=== PATIENT | female | born 1970 | race Caucasian/White ===

== ENCOUNTER 2017-09-16 11:21 | Emergency (ER) | payer BC ==
[2017-09-16 11:31] VITALS: RESP 18
[2017-09-16 13:37] LABS: % IMMATURE GRANULYOCYTES 0.6 % (0.0-1.1); ABSOLUTE IMMATURE GRANULOCYTES 0.06 10^3/uL (0.00-0.10); ADD DIFF? NO; ADD MORPH? NO; ADD SCAN? NO; ATYPICAL LYMPHOCYTE FLAG 0 (0-99); FRAGMENT RBC FLAG 0 (0-99); HEMATOCRIT 41.6 % (38.0-47.0); HEMOGLOBIN 14.4 g/dL (12.6-16.3); LEFT SHIFT FLG 0 (0-99); LIPEMIA HEMOLYSIS FLAG 90 (0-99); MEAN CELL HEMOGLOBIN 29.7 pg (27.9-34.1); MEAN CELL HEMOGLOBIN CONCENTR. 34.6 g/dL (32.4-36.7); MEAN CELL VOLUME 85.8 fL (81.5-99.8); MEAN PLATELET VOLUME 10.5 fL (8.7-11.7); PLATELET CLUMPS FLAG 0 (0-99); PLATELET COUNT 320 10^3/uL (150-400); RED BLOOD CELL COUNT 4.85 10^6/uL (4.18-5.33); RED CELL DISTRIBUTION WIDTH 12.9 % (11.5-15.2)
[2017-09-16 13:55] LABS: ANION GAP 12 mEq/L (8-16); CALCIUM 9.2 mg/dL (8.5-10.4); CARBON DIOXIDE 24 mEq/l (22-31); CHLORIDE 101 mEq/L (97-110); CREATININE 0.7 mg/dL (0.6-1.0); GLOMERULAR FILTRATION RATE > 60; GLUCOSE 104 mg/dL (70-100); POTASSIUM 4.2 mEq/L (3.5-5.2); SODIUM 137 mEq/L (134-144)
--- NOTE | 2017-09-16 14:32 | EDPHY ---
H & P Smoking Status: Never smoked Time Seen by Provider: 09/16/17 12:39 HPI/ROS: CHIEF COMPLAINT: Arm weakness, tingling, history of MS HISTORY OF PRESENT ILLNESS: 47-year-old female presents to the emergency department by private vehicle feeling paresthesias in her upper extremities as well as feelings of weakness and immobility of her upper extremities. Patient states in June of 2017 she had MRI of her head and spine. She was told that she had multiple sclerosis. She states that she has had ongoing neuropathy especially in her lower extremities intermittently for years. She states that her upper extremity neuropathy is associated with numbness and tingling and she has had a few episodes where her upper extremities become extremely stiff and she develops a contracture and is unable to move them. This last typically several minutes to sometimes an hour and then it tends to relax and resolve. She denies a headache. She does not feel dizzy. No visual changes. No chest pain or difficulty breathing. No abdominal pain. She has seen a neurologist for this. She had Solu-Medrol 1 g infusion x3 last week. She feels that that has helped her chronic back pain although she is still continued to have these episodes contracture and tingling in her upper extremities. She is scheduled to have an outpatient MRI of her brain and cervical spine. She denies chest pain or difficulty breathing. Denies abdominal pain. She states her energy level is normal. REVIEW OF SYSTEMS: Constitutional: No fever, no chills. Eyes: No double or blurry vision. ENT: No sore throat. Respiratory: No cough, no shortness of breath. Cardiac: No chest pain. Gastrointestinal: No abdominal pain, vomiting or diarrhea. Genitourinary: No dysuria. Musculoskeletal: Chronic back pain as above. No neck pain. Skin: No rashes. Neurological: No headache. (Chloe Hope) Past Medical/Surgical History: Multiple sclerosis (Chloe Hope) Social History: and lives in [place] (Chloe Hope) Physical Exam: General Appearance: Alert, no distress. Eyes: Pupils equal and round. Extraocular motions are all intact. ENT: Mouth: Mucous membranes moist. Respiratory: No wheezing, rhonchi, or rales, lungs are clear to auscultation. Cardiovascular: Regular rate and rhythm. Gastrointestinal: Abdomen is soft and nontender, no masses, no rebound or guarding, bowel sounds normal. Neurological: Alert and oriented x 3, cranial nerves II through XII grossly intact Skin: Warm and dry, no rashes. Musculoskeletal: Nontender to palpate along the cervical, thoracic or lumbar spine. Neck is supple. Extremities: Full range of motion and no peripheral edema. Psychiatric: Patient is oriented X 3, there is no agitation. (Chloe Hope) Constitutional: Initial Vital Signs Temperature (C) 36.9 C 09/16/17 11:26 Heart Rate 94 09/16/17 11:26 Respiratory Rate 18 09/16/17 11:26 Blood Pressure 132/85 H 09/16/17 11:26 O2 Sat (%) 97 09/16/17 11:26 O2 Delivery Mode Room Air Allergies/Adverse Reactions: codeine Allergy (Verified 09/16/17 11:26) Home Medications: Medication Instructions Recorded NK [No Known Home Meds] 09/16/17 Medical Decision Making ED Course/Re-evaluation: 47-year-old female with a history of multiple sclerosis presents with paresthesias to her upper extremity, feelings of weakness as well as contracted arms. The patient had an MRI of her brain and cervical spine 3 months ago. I recommended MRI without with contrast after talking with the radiologist, Dr. Matheus Luis, a both the brain and cervical spine. The patient verbalized understanding and agreed. The patient waited for over 2 hours in the emergency department. Patient requested to be discharged. She states her symptoms have completely resolved and she has a scheduled MRI as an outpatient for tomorrow. I encouraged her to keep scheduled appointment. She was advised the recommendations by the radiologist for ruling out new enhancing lesions that would require MRI of the cervical spine and brain both without and with contrast. Patient verbalized understanding and agreed. I explained to the patient that she should return to the emergency department immediately for change in symptoms or if she develops recurring symptoms. Her laboratory studies including CBC and chemistries were normal. (Chloe Hope) The patient was evaluated and managed by the Physician Cloth Doubling Machine Operator/ Nurse Practitioner. I discussed the patient's presentation and course with the midlevel provider with them and agree with the evaluation. My co-signature indicates that I have reviewed this chart and I agree with the findings and plan of care as documented. I am the secondary supervising physician. (Inocencia Cohen) Differential Diagnosis: Including but not limited to MS exacerbation, cervical radiculopathy, cord compression, electrolyte abnormality, seizures (Chloe Hope) - Data Points Laboratory Results: Laboratory Results 09/16/17 13:27 09/16/17 13:27 Departure - Departure Disposition: Home, Routine, Self-Care Clinical Impression: Multiple sclerosis, Paresthesia Condition: Good Instructions: Paresthesia (ED), Autoimmune Disease (ED) Additional Instructions: Talk with your neurologist about your scheduled imaging studies. Radiologist suggests that you would need an MRI of your brain and her cervical spine both without and with contrast. Please talk to your neurologist about this. Return to the emergency department if he developed recurring paresthesias in her upper or lower extremity, feelings of weakness in her upper or lower extremities, headache, new neurologic symptoms, or if you feel worse in any way. Referrals: Rhea Hoover MD [Primary Care Provider] - As per Instructions
[2017-09-16 15:42] VITALS: BP 137/83; PULSE 89; TEMP 98.2; O2SAT 96
== END 2017-09-16 15:41 | disposition home or self-care (01) ==
DX: G35 Multiple sclerosis (principal)

== ENCOUNTER → 2018-05-23 | Outpatient (CLI) | payer BC, OTHER | LOC: BMCIMAGING 16:50 | PROVIDERS: ATTEND Family Medicine | DX: Z03.89 Encounter for observation for other suspected diseases and conditions ruled out (principal) ==

== ENCOUNTER → 2018-05-29 | Outpatient (CLI) | payer BC, OTHER | LOC: BMCIMAGING 17:57 | PROVIDERS: ATTEND Family Medicine | DX: M25.532 Pain in left wrist (principal) ==

== ENCOUNTER 2018-05-31 08:44 | Inpatient (IN) | payer BC, OTHER ==
--- NOTE | 2018-05-31 09:16 | EDPHY ---
General Time Seen by Provider: 05/31/18 09:03 Narrative: CHIEF COMPLAINT: Hand injury, "I think it is infected" HISTORY OF PRESENT ILLNESS: Patient presents with complaints of injury to the left hand that she thinks is now infected. Last Friday she reports accidentally striking her left hand with the cover of a window well. She sustained lacerations to the palm side of the middle, ring and pinky fingers. She went to urgent care with a x-rayed her hand only, irrigated and repaired the lacerations. She said she was doing well until . Since then she has developed increasing pain, swelling and redness. There is also some purulence from the left pinky finger laceration that she knows on Friday. She went back to the urgent care with a evaluated her clinically and x-rayed the wrist. She was told everything was normal in the x-rays. She called them again later that day and was started on Keflex Friday night. She has increasing pain since then. She has concern for infection. No fever. No nausea vomiting. She is unable to straighten the fingers of the left hand. She has too much pain to move the hand or wrist. No other associated complaints or modifying factors. Right-hand dominant TIME OF INJURY: May 23, 2018 TETANUS STATUS: Questionable MEDICAL/SURGICAL/SOCIAL HISTORY: MS with monthly Tysabri infusions REVIEW OF SYSTEMS: Ten systems reviewed and are negative unless otherwise noted in the HPI EXAMINATION General Appearance: Alert, no distress Head: normocephalic, atraumatic Cardiovascular: Symmetric radial pulses with brisk cap refill the fingers left hand. Neurological: A&O, 2 point sensory symmetric, unable to test veterinary pharmacologist strength in the left hand due to pain laceration. There is no wrist drop. Skin: Warm and dry. There is erythema at the base of the left pinky finger, mildly on the palm over the flexor tendon past, and over the wrist over the flexor tendon path. No crepitus, gangrene or purulence from the wrist, but there is mild purulence from the laceration on the left index finger Extremities: Left hand carried out a flexion resting position. Unable to fully extend the fingers of the left hand. Unable to fully flex the fingers of the left hand. There is painful passive and active range of motion of the fingers and left wrist as well. Evidence suggest flexor tenosynovitis by examination. DIFFERENTIAL DIAGNOSES: Including but not limited to flexor tenosynovitis, septic joint, cellulitis, osteomyelitis MDM: 9:15 a.m. Suspected flexor tenosynovitis of the left hand with obvious infection to laceration on the 5th digit on the palmar side. She has a carrying angle flexion. She does have tenderness along the tendon sheath. Vital signs are within normal limits. She does not meet SIRS criteria. I will discuss with attending physician and hand surgeon on-call. 9:47 a.m. Case discussed with hand surgeon Dr. Costa. He does not want any imaging performed. He does request IV Unasyn, and for me to discontinue the sutures of the left pinky in soak her hand in a Betadine saline solution. He would like her cap strict NPO in states that he will be able to evaluate her within the next 2 hr. He is comfortable the patient going to the floor prior to being evaluated in the ER. 10:00 a.m. Case discussed with Dr. Starkey. He will admit the patient to his service. He requests observation, medical surgical bed. I discussed the management plan recommended by Dr. Costa 10:15 a.m. Left pinky finger sutures have been removed and she is currently soaking her hand in a Betadine saline solution. She is thus far declining pain medication or digital block. SUPERVISION: Patient was independently examined, but I discussed the case with my secondary supervising physician Dr. Hess - History Smoking Status: Never smoked - Objective Vital Signs: Initial Vital Signs Temperature (C) 98.2 F 05/31/18 08:49 Heart Rate 89 05/31/18 08:49 Respiratory Rate 18 05/31/18 08:49 Blood Pressure 143/65 H 05/31/18 08:49 O2 Sat (%) 100 05/31/18 08:49 O2 Delivery Mode Room Air Allergies/Adverse Reactions: celery Allergy (Severe, Verified 05/31/18 10:38) Anaphylaxis grape Allergy (Severe, Verified 05/31/18 10:38) Anaphylaxis codeine Allergy (Verified 05/31/18 08:54) Home Medications: Medication Instructions Recorded Cephalexin [Keflex (*)] 500 mg PO QID 05/31/18 Fexofenadine Odt 30 mg SL DAILY 05/31/18 Fluticasone Nasal [Flonase Nasal 1 sprays NASAL HS 05/31/18 [place] (RX)] Herbals/Supplements -Info Only 1 ea PO DAILY 05/31/18 Ibuprofen [Motrin (*)] 600 mg PO Q6H PRN 05/31/18 Levonorgestrel-Ethin Estradiol 1 each PO HS 05/31/18 [Introvale] Natalizumab [Tysabri] 300 mg IV Q28D 05/31/18 Laboratory Results: Laboratory Results 05/31/18 09:35 05/31/18 09:35 05/31/18 05/31/18 05/31/18 09:44 09:35 09:35 WBC 15.10 10^3/uL H 10^3/uL (3.80-9.50) RBC 4.28 10^6/uL 10^6/uL (4.18-5.33) Hgb 12.4 g/dL L g/dL (12.6-16.3) POC Hgb 13.3 gm/dL gm/dL (12.6-16.3) Hct 37.2 % L % (38.0-47.0) POC Hct 39 % % (38-47) MCV 86.9 fL fL (81.5-99.8) MCH 29.0 pg pg (27.9-34.1) MCHC 33.3 g/dL g/dL (32.4-36.7) RDW 14.4 % % (11.5-15.2) Plt Count 243 10^3/uL 10^3/uL (150-400) MPV 12.0 fL H fL (8.7-11.7) Neut % (Auto) 69.8 % % (39.3-74.2) Lymph % (Auto) 24.2 % % (15.0-45.0) [place] % (Auto) 4.4 % L % (4.5-13.0) Eos % (Auto) 0.7 % % (0.6-7.6) Baso % (Auto) 0.2 % L % (0.3-1.7) Nucleat RBC Rel Count 0.1 % % (0.0-0.2) Absolute Neuts (auto) 10.54 10^3/uL H 10^3/uL (1.70-6.50) Absolute Lymphs (auto) 3.66 10^3/uL H 10^3/uL (1.00-3.00) Absolute Monos (auto) 0.66 10^3/uL 10^3/uL (0.30-0.80) Absolute Eos (auto) 0.11 10^3/uL 10^3/uL (0.03-0.40) Absolute Basos (auto) 0.03 10^3/uL 10^3/uL (0.02-0.10) Absolute Nucleated RBC 0.02 10^3/uL H 10^3/uL (0-0.01) Immature Gran % 0.7 % % (0.0-1.1) Immature Gran # 0.10 10^3/uL 10^3/uL (0.00-0.10) ESR 7 MM/HR MM/HR (0-20) POC Sodium 140 mEq/L mEq/L (135-145) Sodium POC Potassium 3.6 mEq/L mEq/L (3.3-5.0) Potassium POC Chloride 106 mEq/L mEq/L (97-110) Chloride Carbon Dioxide Anion Gap POC BUN 11 mg/dL mg/dL (7-23) BUN Creatinine POC Creatinine 0.5 mg/dL L mg/dL (0.6-1.0) Estimated GFR Glucose POC Glucose 114 mg/dL H mg/dL (70-100) Calcium C-Reactive Protein Beta HCG, Qual NEGATIVE 05/31/18 09:35 WBC RBC Hgb POC Hgb Hct POC Hct MCV MCH MCHC RDW Plt Count MPV Neut % (Auto) Lymph % (Auto) [place] % (Auto) Eos % (Auto) Baso % (Auto) Nucleat RBC Rel Count Absolute Neuts (auto) Absolute Lymphs (auto) Absolute Monos (auto) Absolute Eos (auto) Absolute Basos (auto) Absolute Nucleated RBC Immature Gran % Immature Gran # ESR POC Sodium Sodium 139 mEq/L mEq/L (135-145) POC Potassium Potassium 3.8 mEq/L mEq/L (3.3-5.0) POC Chloride Chloride 107 mEq/L mEq/L (97-110) Carbon Dioxide 20 mEq/l L mEq/l (22-31) Anion Gap 12 mEq/L mEq/L (8-16) POC BUN BUN 12 mg/dL mg/dL (7-23) Creatinine 0.6 mg/dL mg/dL (0.6-1.0) POC Creatinine Estimated GFR > 60 Glucose 101 mg/dL H mg/dL (70-100) POC Glucose Calcium 8.9 mg/dL mg/dL (8.5-10.4) C-Reactive Protein 56.1 mg/L H mg/L (<10.0) Beta HCG, Qual Medications Given: Potassium Chloride/Sodium Chloride (Ns W/ 20 Kcl/L) 1,000 mls @ 100 mls/hr IV CONT KHAI Stop: 11/27/18 09:59 Last Admin: 05/31/18 11:54 Dose: 1,000 mls Morphine Sulfate (Morphine) 1 - 2 mg IVP Q2 PRN PRN Reason: Pain, Severe Unable to Take PO Stop: 06/10/18 09:58 Last Admin: 05/31/18 10:29 Dose: 2 mg Discontinued Medications Diphtheria/Tetanus/Acell Pertussis (Boostrix) 0.5 ml IM .ONCE ONE Stop: 05/31/18 09:53 Last Admin: 05/31/18 10:41 Dose: 0.5 ml Sodium Chloride (Ns) 1,000 mls @ 0 mls/hr IV EDNOW ONE; Wide Open PRN Reason: Protocol Stop: 05/31/18 09:51 Last Admin: 05/31/18 10:28 Dose: 1,000 mls Ampicillin Sodium/Sulbactam (Sodium 3 gm/ Sodium Chloride) 100 mls @ 200 mls/ hr IV EDNOW ONE PRN Reason: Protocol Stop: 05/31/18 10:19 Last Admin: 05/31/18 10:33 Dose: 100 mls Point of Care Test Results: Chemistry 05/31/18 09:44 POC Sodium 140 mEq/L mEq/L (135-145) POC Potassium 3.6 mEq/L mEq/L (3.3-5.0) POC Chloride 106 mEq/L mEq/L (97-110) POC BUN 11 mg/dL mg/dL (7-23) POC Creatinine 0.5 mg/dL L mg/dL (0.6-1.0) POC Glucose 114 mg/dL H mg/dL (70-100) ISTAT H&H 05/31/18 09:44 POC Hgb 13.3 gm/dL gm/dL (12.6-16.3) POC Hct 39 % % (38-47) Departure - Departure Disposition: [facility] Acute Clinical Impression: Flexor carpi ulnaris tenosynovitis Condition: Good
[2018-05-31] MEDS ORDERED: AMPICILLIN/SULBACTAM 3 GM in NS 100 ML IV ONE (09:50)
[2018-05-31] MEDS ORDERED: NS 1,000 ML IV ONE (09:50)
[2018-05-31] MEDS ORDERED: TDAP ADULT 0.5 ML INJ (BOOSTRIX) IM ONE (09:52)
[2018-05-31] MEDS ORDERED: IBUPROFEN 200 MG TAB PO PRN (09:59)
[2018-05-31] MEDS ORDERED: ACETAMINOPHEN 325 MG TAB PO PRN (09:59)
[2018-05-31] MEDS ORDERED: ONDANSETRON 4 MG/2 ML VIAL IVP PRN ×2 (09:59→15:59)
[2018-05-31] MEDS ORDERED: ONDANSETRON DISINTEGRATING 4 MG TAB PO PRN (09:59)
[2018-05-31] MEDS ORDERED: oxyCODONE IR 5 MG TAB PO PRN ×2 (09:59→15:59)
[2018-05-31] MEDS ORDERED: NS W/ 20 KCl/L 1,000 ML IV SCH (10:00)
[2018-05-31 10:17] LABS: PLATELET COUNT 243 10^3/uL (150-400)
--- NOTE | 2018-05-31 15:12 | PDANEPAE ---
ANE History of Present Illness left hand infection ANE Past Medical History - Cardiovascular History Hx Hypertension: No Hx Arrhythmias: No Hx Chest Pain: No Hx Coronary Artery / Peripheral Vascular Disease: No Hx CHF / Valvular Disease: No Hx Palpitations: No - Pulmonary History Hx COPD: No Hx Asthma/Reactive Airway Disease: No Hx Recent Upper Respiratory Infection: No Hx Oxygen in Use at Home: No Hx Sleep Apnea: No Sleep Apnea Screening Result - Last Documented: Negative - Endocrine History Hx Diabetes: No Hypothyroid: No Hyperthyroid: No Obesity: no - Chronic Pain History Chronic Pain: No ANE Review of Systems Review of systems is: negative Review of Systems: - Exercise capacity Exercise capacity: >=4 METS ANE Patient History - Allergies Allergies/Adverse Reactions: celery Allergy (Severe, Verified 05/31/18 10:38) Anaphylaxis grape Allergy (Severe, Verified 05/31/18 10:38) Anaphylaxis codeine Allergy (Verified 05/31/18 08:54) - Home Medications Home medications: home medication list seen and reviewed Home Medications: Cephalexin [Keflex (*)] 500 mg PO QID 05/31/18 [Last Taken 05/30/18] Fexofenadine Odt 30 mg SL DAILY 05/31/18 [Last Taken 05/30/18] Fluticasone Nasal [Flonase Nasal [place] (RX)] 1 sprays NASAL HS 05/31/18 [Last Taken 05/30/18] Herbals/Supplements -Info Only 1 ea PO DAILY 05/31/18 [Last Taken 05/30/18] Ibuprofen [Motrin (*)] 600 mg PO Q6H PRN 05/31/18 [Last Taken 05/30/18] Levonorgestrel-Ethin Estradiol [Introvale] 1 each PO HS 05/31/18 [Last Taken 06/10] Natalizumab [Tysabri] 300 mg IV Q28D 05/31/18 [Last Taken Unknown] - NPO status NPO Since - Liquids (Date): 05/31/18 NPO Since - Liquids (Time): 07:15 NPO Since - Solids (Date): 05/31/18 NPO Since - Solids (Time): 07:15 - Anes Hx Anes Hx: no prior problems - Smoking Hx Smoking Status: Never smoked ANE Labs/Vital Signs - Labs Result Diagrams: 05/31/18 09:35 05/31/18 09:35 - Vital Signs Blood Pressure: 144/76 Heart Rate: 78 Respiratory Rate: 16 O2 Sat (%): 97 Height: 160.02 cm Weight: 52.254 kg ANE Physical Exam - Airway Neck exam: FROM Mallampati Score: Class 1 Mouth exam: normal dental/mouth exam - Pulmonary Pulmonary: no respiratory distress - Cardiovascular Cardiovascular: regular rate and rhythym - ASA Status ASA Status: II ANE Anesthesia Plan Anesthesia Plan: GA w LMA
[2018-05-31] MEDS ORDERED: fentaNYL 100 MCG/2 ML INJ ONE ×4 (15:24→16:41)
[2018-05-31] MEDS ORDERED: PROPOFOL 200 MG/20 ML VIAL ONE (15:24)
[2018-05-31] MEDS ORDERED: BUPIVACAINE 0.25% 30 ML SDV ONE (15:26)
--- NOTE | 2018-05-31 15:26 | PDGENHP ---
History and Physical - Chief Complaint Acute hand pain - History of Present Illness PCP: Dr. Shahid HPI: 47 yo F p/w acute hand pain located on the palmar surface of the L hand, extending in the the ventral surface of the L forearm immediately proximal to the wrist w/ associated swelling of the palmar surface of the hand as well as digits 3-5, L wrist. Onset of injury was approx 1 week ago when patient sustained a crush injury while working on an egress, w/ skin maceration along the palmar MCP areas on digits 2-5. She went to [facility] and had an x-ray which demonstrated no fxr. She received stitches to the affected area. The pain/ swelling persisted, and, approx 3 days ago, she represented to [facility], where she received Keflex, and has been adherent to this Rx over the past 2 days. There is severe pain in the wrist, palm, and fingers w/ any attempt to flex, and limited ROM on extension 2/2 the tightness and swelling. History Information - Allergies/Home Medication List Allergies/Adverse Reactions: celery Allergy (Severe, Verified 05/31/18 10:38) Anaphylaxis grape Allergy (Severe, Verified 05/31/18 10:38) Anaphylaxis codeine Allergy (Verified 05/31/18 08:54) Home Medications: Cephalexin [Keflex (*)] 500 mg PO QID 05/31/18 [Last Taken 05/30/18] Fexofenadine Odt 30 mg SL DAILY 05/31/18 [Last Taken 05/30/18] Fluticasone Nasal [Flonase Nasal [place] (RX)] 1 sprays NASAL HS 05/31/18 [Last Taken 05/30/18] Herbals/Supplements -Info Only 1 ea PO DAILY 05/31/18 [Last Taken 05/30/18] Ibuprofen [Motrin (*)] 600 mg PO Q6H PRN 05/31/18 [Last Taken 05/30/18] Levonorgestrel-Ethin Estradiol [Introvale] 1 each PO HS 05/31/18 [Last Taken 06/10] Natalizumab [Tysabri] 300 mg IV Q28D 05/31/18 [Last Taken Unknown] I have personally reviewed and updated: family history, medical history, social history, surgical history - Past Medical History Additional medical history: Multiple Sclerosis w/ prior Sx of bilateral hand neuropathy, resolved w/ Tysabri (monthly, next dose in 5 days). Chronic Lower Back Pain - Surgical History Reports: no pertinent surgical hx - Family History Additional family history: no VTE - Social History Smoking Status: Never smoked Alcohol Use: None Drug Use: Marijuana Additional social history: independent in ADLs Review of Systems Review of Systems: ROS: 10pt was reviewed & negative except for what was stated in HPI & below Muscolosketal: Reports: other (hand pain/swelling) Skin: Reports: other (macerated palm) Physical Exam Physical Exam: Temp Pulse Resp BP Pulse Ox 36.9 C 78 16 144/76 H 97 05/31/18 15:00 05/31/18 15:12 05/31/18 15:12 05/31/18 15:12 05/31/18 15:12 Constitutional: no apparent distress, appears nourished, uncomfortable, No not in pain (mild) Eyes: PERRL, anicteric sclera, EOMI Ears, Nose, Mouth, Throat: moist mucous membranes, hearing normal, ears appear normal, no oral mucosal ulcers Cardiovascular: regular rate and rhythym, no murmur, rub, or gallop, No irregularly irregular Respiratory: no respiratory distress, no rales or rhonchi, clear to auscultation Gastrointestinal: normoactive bowel sounds, soft, non-tender abdomen, no palpable masses Skin: other (sutures intact on digits 3-4, open lacerations digits 2 and 5, soft tissue edema palmar aspect, tender) Musculoskeletal: other (limited ROM L wrist on extension to 0 degrees 2/2 stiffness, limited ROM L wrist on flexion to 45 deg 2/2 pain, limited extension L digits 3-5 -15 degrees, limited flexion L digits 3-5 MCP 30 degrees; full ROM L elbow and L shoulder w/o limitations) Neurologic: AAOx3, sensation intact bilaterally, No weakness Psychiatric: interacting appropriately, not anxious, not encephalopathic, thought process linear Lab Data & Imaging Review 05/31/18 09:35 05/31/18 09:35 WBC 15.10 10^3/uL (3.80-9.50) H 05/31/18 09:35 RBC 4.28 10^6/uL (4.18-5.33) 05/31/18 09:35 Hgb 12.4 g/dL (12.6-16.3) L 05/31/18 09:35 POC Hgb 13.3 gm/dL (12.6-16.3) 05/31/18 09:44 Hct 37.2 % (38.0-47.0) L 05/31/18 09:35 POC Hct 39 % (38-47) 05/31/18 09:44 MCV 86.9 fL (81.5-99.8) 05/31/18 09:35 MCH 29.0 pg (27.9-34.1) 05/31/18 09:35 MCHC 33.3 g/dL (32.4-36.7) 05/31/18 09:35 RDW 14.4 % (11.5-15.2) 05/31/18 09:35 Plt Count 243 10^3/uL (150-400) 05/31/18 09:35 MPV 12.0 fL (8.7-11.7) H 05/31/18 09:35 Neut % (Auto) 69.8 % (39.3-74.2) 05/31/18 09:35 Lymph % (Auto) 24.2 % (15.0-45.0) 05/31/18 09:35 [place] % (Auto) 4.4 % (4.5-13.0) L 05/31/18 09:35 Eos % (Auto) 0.7 % (0.6-7.6) 05/31/18 09:35 Baso % (Auto) 0.2 % (0.3-1.7) L 05/31/18 09:35 Nucleat RBC Rel Count 0.1 % (0.0-0.2) 05/31/18 09:35 Absolute Neuts (auto) 10.54 10^3/uL (1.70-6.50) H 05/31/18 09:35 Absolute Lymphs (auto) 3.66 10^3/uL (1.00-3.00) H 05/31/18 09:35 Absolute Monos (auto) 0.66 10^3/uL (0.30-0.80) 05/31/18 09:35 Absolute Eos (auto) 0.11 10^3/uL (0.03-0.40) 05/31/18 09:35 Absolute Basos (auto) 0.03 10^3/uL (0.02-0.10) 05/31/18 09:35 Absolute Nucleated RBC 0.02 10^3/uL (0-0.01) H 05/31/18 09:35 Immature Gran % 0.7 % (0.0-1.1) 05/31/18 09:35 Immature Gran # 0.10 10^3/uL (0.00-0.10) 05/31/18 09:35 ESR 7 MM/HR (0-20) 05/31/18 09:35 POC Sodium 140 mEq/L (135-145) 05/31/18 09:44 Sodium 139 mEq/L (135-145) 05/31/18 09:35 POC Potassium 3.6 mEq/L (3.3-5.0) 05/31/18 09:44 Potassium 3.8 mEq/L (3.3-5.0) 05/31/18 09:35 POC Chloride 106 mEq/L (97-110) 05/31/18 09:44 Chloride 107 mEq/L (97-110) 05/31/18 09:35 Carbon Dioxide 20 mEq/l (22-31) L 05/31/18 09:35 Anion Gap 12 mEq/L (8-16) 05/31/18 09:35 POC BUN 11 mg/dL (7-23) 05/31/18 09:44 BUN 12 mg/dL (7-23) 05/31/18 09:35 Creatinine 0.6 mg/dL (0.6-1.0) 05/31/18 09:35 POC Creatinine 0.5 mg/dL (0.6-1.0) L 05/31/18 09:44 Estimated GFR > 60 05/31/18 09:35 Glucose 101 mg/dL (70-100) H 05/31/18 09:35 POC Glucose 114 mg/dL (70-100) H 05/31/18 09:44 Calcium 8.9 mg/dL (8.5-10.4) 05/31/18 09:35 C-Reactive Protein 56.1 mg/L (<10.0) H 05/31/18 09:35 Beta HCG, Qual NEGATIVE 05/31/18 09:35 Visualized and Interpreted imaging results: Yes Interpretation: 05/29 x-ray no fracture Assessment & Plan Assessment: 47-year-old female presents with acute flexor tenosynovitis L hand Plan: # Flexor tenosynovitis. Acute, new problem, further w/u indicated. Evidenced by limited ROM on extension from swelling, limited ROM on flexion from pain and likely flexor sheath involvement, both distally in palmar surface of hand as well as proximally on ventral surface of forearm w/ leukocytosis, skin break as source -d/w Dr. Costa, we agree that OR wash-out appropriate as patient has failed PO Abx trial w/ severe worsening of ROM/pain/swelling -s/p IV Vanco, continue -send Cx from OR, repeat WBC in AM -pain mgmt as needed -OT consult # Multiple Sclerosis. Chronic, cont on Tysabri as outpt next Friday -reviewed outside records including MRI read by Dr. Adin Jacobs 09/19/17, indicating multiple, bilateral MS plaques Diet. NPO, IVF Code. Full PPX. Low risk, SCDs Dispo. ADD uncertain, admit to INPATIENT status for reasonable medical necessity including tenosynovitis refractory to PO Abx as outpatient w/ rapid worsening and requiring urgent OR wash-out, IV Abx.
[2018-05-31] MEDS ORDERED: LIDOCAINE 2% 5 ML SDV ONE (15:27)
[2018-05-31] MEDS ORDERED: ONDANSETRON 4 MG/2 ML VIAL ONE (15:27)
[2018-05-31] MEDS ORDERED: KETOROLAC 30 MG/1 ML SDV ONE (15:27)
[2018-05-31] MEDS ORDERED: BACITRACIN 50,000 UNITS/10 ML SYR IRR ONE (15:27)
[2018-05-31] MEDS ORDERED: DEXAMETHASONE 4 MG/ML VIAL ONE (15:27)
[2018-05-31] MEDS ORDERED: MIDAZOLAM 2 MG/2 ML VIAL ONE (15:30)
[2018-05-31] MEDS ORDERED: MIDAZOLAM 2 MG/2 ML VIAL IVP ONE (15:30)
--- NOTE | 2018-05-31 15:31 | GCON ---
[f rep st] CONSULTATION DATE OF CONSULTATION: 05/31/2018 CHIEF COMPLAINT: Left hand pain and infection. HISTORY OF PRESENT ILLNESS: I was called by the emergency room on 05/31/2018. The patient had prese nted earlier that morning with increasing pain, swelling, and drainage in her left hand. About 8 day s ago, she smashed her hand between a heavy metal cover plate and had multiple lacerations to the sma ll, ring, and long fingers. Over the past 48 hours, she has had increasing redness, some drainage fr om the small finger, increased pain, limited motion of the wrist and hand, and she presented to the e mergency room for presumption of infection. PAST MEDICAL HISTORY: Multiple sclerosis recently diagnosed. ALLERGIES: No known drug allergies other than food allergies. MEDICATIONS: The patient is on an autoimmune modulating agent for her MS but, otherwise, is healthy. She has been receiving Unasyn in the hospital during her earlier time in the emergency room and on the floor. SOCIAL HISTORY: The patient is a nonsmoker and does not drink any excessive alcohol. She does not u se any street drugs and is , right-hand dominant. FAMILY HISTORY: Noncontributory. REVIEW OF SYSTEMS: The patient has felt some malaise. No systemic fevers or other chills, nausea, v omiting. Her complaints are isolated to her right hand pain. EXAMINATION: VITAL SIGNS: The patient is afebrile upon presentation. Vital signs normal. GENERAL: Alert, oriented, appropriate in no acute distress. EXTREMITIES: Her right upper extremity exam sh ows well-approximated lacerations with no drainage of the long finger and ring finger but had some dr ainage of the small finger at the PIP crease. She has tenderness to palpation along the flexor tendo n sheath of the small finger. She has pain with passive extension, a sausage-appearing digit and she has pain radiating into the palm with erythema and redness proximal to the wrist crease indicating s ome clear communication of deep-space hand infection with the flexor tendon sheaths. SKIN: Exam rad ws some minor petechia and erythema proximal to the wrist. LYMPHATIC: Exam shows no baseline lymphe yazan. CIRCULATORY: Exam shows good radial and ulnar pulses. Her fingers are all warm and pink with capillary refill less than 2 seconds in all digits. SENSORY: Exam is normal in the median, ulnar, and radial nerve distributions as well as, again, all the digital nerve distributions individually on the small, ring, and long fingers. ASSESSMENT: Flexor tendon synovitis with deep-space infection of the left hand including the left sm all finger and tendons above the wrist crease. PLAN AND RECOMMENDATIONS: I am recommending incision and drainage in the operating room under anesth esia and we will do this as soon as possible. The patient has been n.p.o. since 7 a.m., so we are ju st going wait until approximately 3:30 to do the procedure and this will also be based on OR availabi lity. The patient will continue to receive IV Unasyn. We have discussed the plan with Dr. Starkey of the hospitalist staff and we will get some cultures, continue her antibiotics, and I would anticipat e if everything goes well that she would be discharged tomorrow on oral antibiotics. /[id number]/MODL
--- NOTE | 2018-05-31 15:49 | ASMTCMCOM ---
CM Note CM Note Notes: Pt presented to the Emergency Department with acute hand pain. History includes Multiple Sclerosis with bilateral hand neuropathy and chronic low back pain. Pt admitted for flexor tenosynovitis. Pt is and lives with her . Preliminary MD notes recommend OT. Discharge needs remain unclear. CM will continue to follow Current Discharge Plan: To be determined Date Signed: 05/31/2018 03:49 PM Electronically Signed By:Trudy Kwok RN
--- NOTE | 2018-05-31 15:54 | POSTANESTH ---
Post Anesthetic Evaluation Cardiovascular Status: Normal, Stable Respiratory Status: Normal, Stable Level of Consciousness/Mental Status: Can Participate in Eval Pain Control: Adequate, Prn Tx Ordered Nausea/Vomiting Control: Adequate, Prn Tx Ordered Complications Possibly Related to Anesthesia: None Noted
[2018-05-31] MEDS ORDERED: ACETAMINOPHEN 500 MG TAB PO PRN (15:59)
[2018-05-31] MEDS ORDERED: LR 500 ML IV PRN (15:59)
[2018-05-31] MEDS ORDERED: HYDROCODONE/APAP 5/325 TAB PO PRN (15:59)
[2018-05-31] MEDS ORDERED: NALOXONE HCL 0.4 MG/ML INJ IVP PRN ×2 (15:59→16:41)
[2018-05-31] MEDS ORDERED: ALBUTEROL 3 ML DEYVIAL IH PRN (15:59)
[2018-05-31] MEDS ORDERED: PROMETHAZINE HCL 25 MG/ML INJ IVP PRN (15:59)
[2018-05-31] MEDS ORDERED: HYDROmorphONE/DILAUDID 1 MG/ML INJ ONE (16:31)
[2018-05-31] MEDS: HYDROmorphONE/DILAUDID 1 MG/ML INJ IVP PRN ×4 (16:36→17:08)
[2018-05-31] MEDS ORDERED: DIAZEPAM 5 MG/ML 1 ML SYR IVP PRN (16:41)
[2018-05-31] MEDS: fentaNYL 100 MCG/2 ML INJ IVP PRN ×3 (16:42→17:12)
[2018-05-31] MEDS ORDERED: DIAZEPAM 5 MG/ML 1 ML SYR ONE (16:46)
--- NOTE | 2018-05-31 17:00 | PDMN ---
Medical Necessity Medical necessity: [facility] Systemic or Infectious Condition. 47 y/o initial presentation tenosynovitis s/p crush injury to L hand last week, on outpatient PO antibx w/ worsening s/sx. Refractory to PO antibx as an outpt w/ rapid worsening s/x. WBC 15.1. Surgical consult reveals deep space infection. Pt developed acute infection requiring urgent same day surgery (incision and drainage), requiring ongoing IV antibx and IV fluids and IV pain management. Tissue cx pending. OT consult. Presents with anemia also. Pt recently diagnosed with MS and is on autoimmune agents. Anticipate > 2MN for monitoring and treatment.
--- NOTE | 2018-05-31 18:18 | GOP ---
[f rep st] OPERATIVE REPORT DATE OF OPERATION: 05/31/2018 SURGEON: Karthikeyan Costa MD MEDICAL LAB ASSISTANT: None. ANESTHESIA: General. PREOPERATIVE DIAGNOSIS: Left small finger septic flexor tenosynovitis, with deep space hand infection. POSTOPERATIVE DIAGNOSIS: Left small finger septic flexor tenosynovitis, with deep space hand infection. PROCEDURE PERFORMED: Open irrigation and debridement of septic flexor tenosynovitis, left small finger. FINDINGS: SPECIMENS: Culture swab x1. ESTIMATED BLOOD LOSS: At finish of the procedure, zero. INDICATIONS: Patient has the aforementioned hand infection after laceration 8 days ago. She had lacerations on multiple fingers, but this was the only one that was looking suspicious as of 2 days ago, and this has evolved into an ascending infection, including involving her deep space of her hand and flexor tendon sheath. I have discussed with her the risks, benefits, and alternatives of irrigation and debridement of the septic flexor tenosynovitis. These include , but are not limited to, infection, neurovascular injury, residual pain and stiffness,and repeat operation. DESCRIPTION OF PROCEDURE: The patient was identified in the preoperative area and the operative extremity marked. She was laid supine on the operating table where a general anesthesia was initiated, a time-out was performed, and the left upper extremity prepped and draped in sterile fashion. She was receiving continuous IV Unasyn and had recently received 3 g IV Unasyn, so we did not redose her with any additional antibiotics. The limb was then prepped and draped in sterile fashion after induction of general anesthesia, and the left upper extremity was elevated but not exsanguinated and a tourniquet inflated at 250 mmHg. The wound, which was present at the small finger PIP flexor crease was opened, and this incision was slightly extended. There was definite pus that came out of this wound. I swabbed this. I made a separate incision at the A1 marisol so that this was in communication, and I flushed a fair bit of fluid through this area communicating between the two and expressed purulence back at the level of the A1 marisol. It was clear that I could express pus from further up in the system, so I made an incision to release the carpal tunnel and also an incision above the wrist crease, so that I could access to flush the compartment all the way up to the area proximal to the wrist where there was erythema and swelling present preoperatively, and indeed, abnormal fluid was found in all of these areas. I was able to use an Angiocath with saline and bacitracin to continuously irrigate through this area. I was quite pleased that all the pus was evacuated. I did not think that any kind of second washout would be necessary. We left the distal incision open to drain freely, and we used a liter and a half of fluid through the area of infection. I did close the carpal tunnel and the proximal incision and then a bulky soft dressing was placed. The tourniquet taken down with the finger warm and pink at takedown of the tourniquet. The patient was awakened and taken to Recovery, after tolerating the procedure well without any apparent complications. All sponge and needle counts were correct at the finish of the operation. PLAN: Patient will be kept overnight. The hospitalist was the admitting team, and they will continue with IV Unasyn. We will check the culture results, and certainly, I would anticipate relatively quick conversion to oral antibiotics and potentially discharge home. /[id number]/MODL MTDD
[2018-05-31] MEDS: FLUTICASONE NASAL 120 SPRAYS/16 GM MDI EACHNARE SCH (20:43)
[2018-05-31] MEDS: VANCOMYCIN 750 MG in D5W 150 ML IV SCH (20:43)
[2018-05-31] MEDS: IBUPROFEN 600 MG TAB PO PRN (22:04)
[2018-05-31] MEDS: INTROVALE PO SCH (22:04)
[2018-05-31] MEDS: PSYLLIUM METAMUCIL 1 PKT PO SCH (22:04)
[2018-06-01] MEDS: ACETAMINOPHEN 500 MG TAB PO PRN ×3 (01:24→16:31)
[2018-06-01] MEDS: VANCOMYCIN 750 MG in D5W 150 ML IV SCH ×2 (08:06→20:44)
[2018-06-01] MEDS: FLUTICASONE NASAL 120 SPRAYS/16 GM MDI EACHNARE SCH ×2 (08:08→22:19)
[2018-06-01] MEDS: IBUPROFEN 600 MG TAB PO PRN ×3 (08:16→20:44)
[2018-06-01] MEDS ORDERED: Herbals/Supplements -Info Only PO SCH (09:00)
[2018-06-01] MEDS: FEXOFENADINE 30 MG SL SCH (09:39)
--- NOTE | 2018-06-01 13:10 | PDCONSULT ---
Mental Health Program Specialist Note: Orthopedics Progress: postop day 1 I&D of left small flexor tenosynovitis Subjective: Patient feeling improved today. Reports pain well controlled with ibuprofen and tylenol prn. Exam: Left hand dressings taken down to reveal well approximated incisions without active drainage. Dried bloody drainage on dressings. NVI distally. Erythema is diffuse and decreased. Hand edematous. Pulses palpable, fingers pwwp. A/P: Patient is doing well status post left small finger I&D. I'm encouraged by my clinical exam today and decreased white blood cell count today. I have changed her dressings today. Culture still pending. Appreciate medicine with primary care during this patient's stay. Recommend transition to oral antibiotics and okay from a Ortho perspective for discharge later today or tomorrow. We can switch her antibiotics as needed pending her culture results. I instructed her to follow up in our office this Friday. This was thoroughly discussed with the patient, and all questions answered. Of note, the patient was scheduled for medication infusion for multiple sclerosis. She will be in touch with their office to see if she should reschedule this. Discussed with Dr. Costa. WBC 14.64 10^3/uL (3.80-9.50) H 06/01/18 05:05 RBC 4.15 10^6/uL (4.18-5.33) L 06/01/18 05:05 Hgb 11.9 g/dL (12.6-16.3) L 06/01/18 05:05 POC Hgb 13.3 gm/dL (12.6-16.3) 05/31/18 09:44 Hct 35.8 % (38.0-47.0) L 06/01/18 05:05 POC Hct 39 % (38-47) 05/31/18 09:44 MCV 86.3 fL (81.5-99.8) 06/01/18 05:05 MCH 28.7 pg (27.9-34.1) 06/01/18 05:05 MCHC 33.2 g/dL (32.4-36.7) 06/01/18 05:05 RDW 14.3 % (11.5-15.2) 06/01/18 05:05 Plt Count 252 10^3/uL (150-400) 06/01/18 05:05 MPV 12.0 fL (8.7-11.7) H 05/31/18 09:35 Neut % (Auto) 69.8 % (39.3-74.2) 05/31/18 09:35 Lymph % (Auto) 24.2 % (15.0-45.0) 05/31/18 09:35 [place] % (Auto) 4.4 % (4.5-13.0) L 05/31/18 09:35 Eos % (Auto) 0.7 % (0.6-7.6) 05/31/18 09:35 Baso % (Auto) 0.2 % (0.3-1.7) L 05/31/18 09:35 Nucleat RBC Rel Count 0.1 % (0.0-0.2) 05/31/18 09:35 Absolute Neuts (auto) 10.54 10^3/uL (1.70-6.50) H 05/31/18 09:35 Absolute Lymphs (auto) 3.66 10^3/uL (1.00-3.00) H 05/31/18 09:35 Absolute Monos (auto) 0.66 10^3/uL (0.30-0.80) 05/31/18 09:35 Absolute Eos (auto) 0.11 10^3/uL (0.03-0.40) 05/31/18 09:35 Absolute Basos (auto) 0.03 10^3/uL (0.02-0.10) 05/31/18 09:35 Absolute Nucleated RBC 0.02 10^3/uL (0-0.01) H 05/31/18 09:35 Immature Gran % 0.7 % (0.0-1.1) 05/31/18 09:35 Immature Gran # 0.10 10^3/uL (0.00-0.10) 05/31/18 09:35 ESR 7 MM/HR (0-20) 05/31/18 09:35 POC Sodium 140 mEq/L (135-145) 05/31/18 09:44 Sodium 139 mEq/L (135-145) 05/31/18 09:35 POC Potassium 3.6 mEq/L (3.3-5.0) 05/31/18 09:44 Potassium 3.8 mEq/L (3.3-5.0) 05/31/18 09:35 POC Chloride 106 mEq/L (97-110) 05/31/18 09:44 Chloride 107 mEq/L (97-110) 05/31/18 09:35 Carbon Dioxide 20 mEq/l (22-31) L 05/31/18 09:35 Anion Gap 12 mEq/L (8-16) 05/31/18 09:35 POC BUN 11 mg/dL (7-23) 05/31/18 09:44 BUN 12 mg/dL (7-23) 05/31/18 09:35 Creatinine 0.6 mg/dL (0.6-1.0) 05/31/18 09:35 POC Creatinine 0.5 mg/dL (0.6-1.0) L 05/31/18 09:44 Estimated GFR > 60 05/31/18 09:35 Glucose 101 mg/dL (70-100) H 05/31/18 09:35 POC Glucose 114 mg/dL (70-100) H 05/31/18 09:44 Calcium 8.9 mg/dL (8.5-10.4) 05/31/18 09:35 C-Reactive Protein 56.1 mg/L (<10.0) H 05/31/18 09:35 Beta HCG, Qual NEGATIVE 05/31/18 09:35 Note
--- NOTE | 2018-06-01 14:36 | ASMTCMCOM ---
CM Note CM Note Notes: CM spoke to MIGUEL Longoria regarding d/c POC. OT is recommending home without any services. No other needs identified at this time. CM available for changes. Plan: Independent Date Signed: 06/01/2018 02:35 PM Electronically Signed By:NICOLÁS Pope
--- NOTE | 2018-06-01 17:52 | HOSPPROG ---
Hospitalist Progress Note Assessment/Plan: Assessment: 47-year-old female presents with acute flexor tenosynovitis L hand 5th digit Plan: # Flexor tenosynovitis. Acute, 5th digit, POD#[address] Costa, wound Cx growing Staph -appreciate wound care today by Dr. Costa's coverage, plan for outpt reassessment on 06/03 (appointment scheduled) -s/p IV Vanco, continue given ongoing leukocytosis, degree of infxn, and potentially resistant (MRSA) organism (failed outpt Keflex) -Vanco level this evening pre-3rd dose -monitor wound Cx sensitivity and WBC -pain mgmt as needed # Multiple Sclerosis. Chronic, cont on Tysabri as outpt next Friday Diet. Regular Code. Full PPX. Low risk, SCDs Dispo. ADD 06/02 s/p Staph sensitivity, if clinically improving Remains clinically unresolved today and requiring ongoing, broad spectrum IV Abx w/ level monitoring, given failed trial of outpt PO Abx. IF WBC downtrending tomorrow, and staph is MRSA, recommend Bactrim DS bid x 7 days as outpt Subjective: ongoing flexion of L 4th and 5th digits, managing pain w/ tylenol/ ibuprofen Objective: Vital Signs Temp Pulse Resp BP Pulse Ox 36.9 C 70 12 123/76 H 95 06/01/18 16:00 06/01/18 16:00 06/01/18 16:00 06/01/18 16:00 06/01/18 16:00 Microbiology 05/31/18 15:51 Gram Stain - Final Hand - Eswab Laboratory Results 06/01/18 05:05 05/31/18 06/01/18 06/02/18 05:59 05:59 05:59 Intake Total 1650 300 Output Total 5 Balance 1645 300 - Pending Discharge Pending Discharge Within 24 Hours: Yes Pending Discharge Date: 06/02/18 Pending Discharge Time: 11:00 - Physical Exam Constitutional: no apparent distress, appears nourished, not in pain, uncomfortable Cardiovascular: regular rate and rhythym, no murmur, rub, or gallop, No edema Respiratory: no respiratory distress, no rales or rhonchi, clear to auscultation Gastrointestinal: normoactive bowel sounds, soft, non-tender abdomen, no palpable masses, No distension Musculoskeletal: other (L 3/4/5 digits flexed, gentle passive extension of all digits improved from day prior, limited extension of L wrist 2/2 pain, less swelling at L ventral surface L wrist than day prior) Neurologic: AAOx3, sensation intact bilaterally (but subjective paresthesias distal fingers L hand) Psychiatric: interacting appropriately, not anxious, not encephalopathic, thought process linear ICD10 Worksheet Patient Problems: Problems Problem Status Onset Flexor carpi ulnaris tenosynovitis Acute
[2018-06-01] MEDS: INTROVALE PO SCH (20:43)
[2018-06-01] MEDS: PSYLLIUM METAMUCIL 1 PKT PO SCH (20:44)
[2018-06-02] MEDS: ACETAMINOPHEN 500 MG TAB PO PRN (04:31)
[2018-06-02] MEDS: VANCOMYCIN 750 MG in D5W 150 ML IV SCH (09:21)
[2018-06-02] MEDS: FEXOFENADINE 30 MG SL SCH (09:23)
[2018-06-02] MEDS: IBUPROFEN 600 MG TAB PO PRN (10:13)
[2018-06-02 11:18] VITALS: BP 133/86
--- NOTE | 2018-06-02 12:03 | HOSPPROG ---
Hospitalist Progress Note Assessment/Plan: 47-year-old female presents with acute flexor tenosynovitis L hand 5th digit. Today is my first encounter with the patient; chart reviewed. # Flexor tenosynovitis, 5th digit POD#[address] Costa, wound Cx growing Staph Aureus, sensitive to several medications dc home on doxycycline x 10 days has an appt w Dr Costa on 06/03 # Multiple Sclerosis. Chronic, cont on Tysabri as outpt #plan: dc home with close f/u; reviewed w Yohana signs and symptoms of worsening infection Subjective: Yohana is feeling well, no complaints. Objective: Vital Signs Temp Pulse Resp BP Pulse Ox 37.1 C 73 14 133/86 H 96 06/02/18 11:16 06/02/18 11:16 06/02/18 11:16 06/02/18 11:16 06/02/18 11:16 Microbiology 05/31/18 15:51 Gram Stain - Final Hand - Eswab Laboratory Results 06/02/18 07:56 06/01/18 06/02/18 06/03/18 05:59 05:59 05:59 Intake Total 1650 300 Output Total 5 Balance 1645 300 - Physical Exam Constitutional: no apparent distress, appears nourished, not in pain Eyes: PERRL Ears, Nose, Mouth, Throat: moist mucous membranes, hearing normal Cardiovascular: regular rate and rhythym Respiratory: no respiratory distress Gastrointestinal: normoactive bowel sounds Skin: other (left hand with some swelling, no redness or warmth noted, has multiple incisions) Neurologic: AAOx3 Psychiatric: interacting appropriately, not anxious ICD10 Worksheet Patient Problems: Problems Problem Status Onset Flexor carpi ulnaris tenosynovitis Acute
--- NOTE | 2018-06-02 12:31 | GDS ---
[f rep st] DISCHARGE SUMMARY DISCHARGE DIAGNOSES: 1. Left 5th digit flexor tenosynovitis. 2. Multiple sclerosis. CONSULTATION: Dr. oCsta. HISTORY OF PRESENT ILLNESS: Briefly, Yohana Bunn is a 47-year-old woman with a history of multiple sclerosis who presented to the emergency room with pain in the palmar surface of her left hand that extended to the left forearm area. She sustained an injury approximately a week ago while at work. She had an x- ray performed that showed no fracture. She was seen and evaluated by Dr. Karthikeyan Costa and on 05/31/2018 she had an open irrigation and debridement of her left small finger. She was treated with vancomycin and has improved nicely. Her culture grew out Staph aureus. She will be discharged home on doxycycline and will further follow up with Dr. Costa in the outpatient setting. HOSPITAL COURSE: 1. Flexor tenosynovitis. She is postoperative day #[address] Costa. She is doing markedly better. She has a followup appointment on June 03. 2. Multiple sclerosis. She may hold off on her Tysabri as an outpatient temporarily until her finger heals. She has already spoken to her neurologist. DISCHARGE CONDITION: Stable. Blood pressure is 133/86, heart rate 73, respiratory rate 14, O2 sats on room air 96%, temperature is 37.1 Celsius. MEDICATIONS AT DISCHARGE: Please see the EMR. DISCHARGE INSTRUCTIONS: 1. To take the doxycycline for the next 10 days unless a surgeon wants to make any changes. 2. Avoid the sun while on doxycycline. 3. If she develops any worsening redness or erythema to her hand, to call Dr. Costa immediately. /[id number]/MODL MTDD
== END 2018-06-02 12:45 | disposition home or self-care (01) | DRG 558 ==
LOC: F3E 11:18 → OBSVTOIN 15:46
PROVIDERS: ADMIT Internal Medicine; ATTEND Internal Medicine
PROC: 0X9K0ZZ Drainage of Left Hand, Open Approach (ICD-10-PCS; principal; 2018-05-31 15:30)
DX: M65.142 Other infective (teno)synovitis, left hand (principal); G35 Multiple sclerosis
CPT/HCPCS: 82435-PO; 82565-PO; 82947-PO; 84132-PO; 84295-PO; 84520-PO; 85014-PO; 97165-GO; J0295; J1100; J1170; J1885; J2250; J2270; J2405; J2704; J3010; J3360; J3370